=== PATIENT | female | born 1940 | race Caucasian/White ===

== ENCOUNTER → 2019-09-19 13:31 | Outpatient (CLI) | payer MEDICARE, SELFPAY ==
[2019-09-19 13:39] LABS: Basophils % 0.3 % (0.1-2.0); Chloride 105 mmol/L (98-107); Eosinophils # 0.1 K/mm3 (0.0-0.4); Eosinophils % 0.9 % (0.1-12.0); Hematocrit 45.4 % (37.0-47.0); Hemoglobin 15.3 g/dL (12.2-16.2); Lymphocytes # 1.8 K/mm3 (0.7-4.5); Lymphocytes % 24.6 % (10-50); Mean Corpuscular HGB Conc 33.7 g/dL (31.8-35.4); Mean Corpuscular Hemoglobin 30.1 pg (27.0-31.2); Mean Corpuscular Volume 89.3 fl (81-99); Mean Platelet Volume 8.2 fl (7.4-10.4); Monocytes # 0.5 K/mm3 (0.1-1.0); Monocytes % 7.2 % (1.7-9.3); Neutrophils # 4.9 K/mm3 (1.8-7.8); Platelet Count 257 K/mm3 (142-424); Red Blood Count 5.09 M/mm3 (4.20-5.40); Red Cell Distribution Width 15.1 % (11.5-17.5); White Blood Count 7.2 K/mm3 (4.8-10.8)
[2019-09-19 13:40] LABS: Potassium 4.3 mmoL/L (3.5-5.1); Sodium 140 mmol/L (136-145)
[2019-09-19 13:42] LABS: Alanine Aminotransferase 25 U/L (12-78); Albumin Level 4.2 g/dl (3.5-5.0); Albumin/Globulin Ratio 1.6 (1.1-1.8); Alkaline Phosphatase 58 U/L (38-126); Anion Gap 14.3 mEq/L (5-15); Aspartate Amino Transferase 33 U/L (14-36); Bilirubin,Total 0.9 mg/dl (0.2-1.3); Blood Urea Nitrogen 10 mg/dl (7-17); Calcium 9.1 mg/dl (8.4-10.2); Carbon Dioxide 25 mmol/L (22.0-30.0); Cholesterol 158 mg/dl (140-200); Estimated Glomerular Filt Rate 69 ml/min (>60); GFR (African American) 84 ML/MIN (>60); Globulin 2.7 g/dL (1.3-3.2); Glucose 115 mg/dl (74-100); Total Protein,Serum 6.9 g/dl (6.3-8.2); Triglycerides 66 mg/dl (30-150); VLDL Cholesterol 13 mg/dL (0-40)
[2019-09-19 13:43] LABS: Chol/HDL Ratio 2.9 (1-3.5); HDL Cholesterol 54 mg/dl (40-60)
[2019-09-19 13:54] LABS: Direct LDL Cholesterol 102.38 mg/dL (100-129)
[2019-09-19 14:01] LABS: T4 (Thyroxine) 11.3 ug/dl (5.53-11.0)
[2019-09-19 14:14] LABS: Thyroid Stimulating Hormone 2.08 uIU/mL (0.465-4.68)
== END ==
PROVIDERS: Visit Provider Family Medicine
DX: E03.9 Hypothyroidism, unspecified (principal); I25.10 Atherosclerotic heart disease of native coronary artery without angina pectoris
CPT/HCPCS: 80053; 80061; 84436; 84443; 85025

== ENCOUNTER → 2021-05-24 16:00 | Outpatient (CLI) | payer MEDICARE, SELFPAY ==
[2021-05-24 15:16] LABS: Basophils # 0.1 K/mm3 (0-0.2); Basophils % 0.7 % (0.1-2.0); Eosinophils # 0.1 K/mm3 (0.0-0.4); Eosinophils % 0.7 % (0.1-12.0); Hematocrit 46.2 % (37.0-47.0); Hemoglobin 14.7 g/dL (12.2-16.2); Mean Corpuscular HGB Conc 31.7 g/dL (31.8-35.4); Mean Corpuscular Hemoglobin 29.3 pg (27.0-31.2); Mean Corpuscular Volume 92.2 fl (81-99); Mean Platelet Volume 8.5 fl (7.4-10.4); Monocytes # 0.6 K/mm3 (0.1-1.0); Monocytes % 7.7 % (1.7-9.3); Neutrophils % 64.8 % (37.0-80.0); Platelet Count 331 K/mm3 (142-424); Red Blood Count 5.01 M/mm3 (4.20-5.40); White Blood Count 7.7 K/mm3 (4.8-10.8)
[2021-05-24 16:20] LABS: Chloride 103 mmol/L (98-107); Potassium 4.7 mmoL/L (3.5-5.1); Sodium 140 mmol/L (136-145)
[2021-05-24 16:23] LABS: Anion Gap 12.7 mEq/L (5-15); Blood Urea Nitrogen 18 mg/dl (7-17); Calcium 8.8 mg/dl (8.4-10.2); Carbon Dioxide 29 mmol/L (22.0-30.0); Cholesterol 118 mg/dl (140-200); Estimated Glomerular Filt Rate 69 ml/min (>60); GFR (African American) 84 ML/MIN (>60); Glucose 111 mg/dl (74-100); Triglycerides 137 mg/dl (30-150); VLDL Cholesterol 27 mg/dL (0-40)
[2021-05-24 16:24] LABS: Chol/HDL Ratio 3.1 (1-3.5); HDL Cholesterol 38 mg/dl (40-60)
[2021-05-24 16:34] LABS: Direct LDL Cholesterol 66.66 mg/dL (100-129)
== END ==
PROVIDERS: Visit Provider Family Medicine
DX: J44.9 Chronic obstructive pulmonary disease, unspecified (principal); E03.9 Hypothyroidism, unspecified; I25.10 Atherosclerotic heart disease of native coronary artery without angina pectoris
CPT/HCPCS: 80048; 80061; 84443; 85025

== ENCOUNTER 2022-03-06 11:15 | Emergency (ER) | payer MEDICARE, SELFPAY ==
--- NOTE | 2022-03-06 11:18 | XR_ITS ---
FINAL REPORT CLINICAL HISTORY: SOB/CP high blood pressure FINDINGS: A single view of the chest was obtained. The heart is normal in size. The mediastinum is unremarkable. The lungs are clear. There is no pleural effusion. There is no pneumothorax. There is no acute osseous abnormality. IMPRESSION: No acute cardiopulmonary process. Reviewed, Interpreted and Dictated by Vivienne Luther MD Transcribed by Alma Vargas Authenticated and . [facility]
--- NOTE | 2022-03-06 11:19 | PC.NURSE ---
pt ambulatory to restroom without complications
--- NOTE | 2022-03-06 11:20 | PC.NURSE ---
ARIEL PLATT at
--- NOTE | 2022-03-06 11:22 | HMH.EDGENADL ---
Discharge Plan Disposition Patient Disposition: Home, Self-Care Condition: Good Chief Complaint: Recheck/Abnormal Lab/Rx Prescriptions Prescriptions: No Action clobetasol 0.05 % cream 1 applic TP BID Qty: 60 5RF Antivert 50 mg tablet 50 mg PO BID PRN (Reason: dizziness) Qty: 90 0RF nitroglycerin 0.4 mg tablet, sublingual 0.4 mg buccal albuterol sulfate 90 mcg/actuation aerosol powdr breath activated 2 inh INHALATION Q4-6H PRN (Reason: shortness of breath or wheezing) Qty: 1 10RF aspirin 81 mg tablet,delayed release (DR/EC) 81 mg PO DAILY Qty: 100 10RF atorvastatin 20 mg tablet See Rx Instructions .ROUTE .COMPLEX Qty: 90 3RF Dose Instruction: Take 1 tablet by mouth once daily Rx Instructions: Take 1 tablet by mouth once daily diazepam [Valium] 5 mg tablet 5 mg PO HS PRN (Reason: anxiety) Qty: 30 5RF Trelegy Ellipta 200-62.5-25 mcg blister with device 1 inh IH DAILY Qty: 60 10RF furosemide [Lasix] 40 mg tablet 40 mg PO DAILY Qty: 90 3RF hydrochlorothiazide 25 mg tablet 25 mg PO ONCE Qty: 90 3RF levothyroxine [Synthroid] 112 mcg tablet 112 mcg PO DAILY Qty: 90 3RF losartan 100 mg tablet 100 mg PO DAILY Qty: 90 3RF potassium chloride 10 mEq capsule, extended release 10 meq PO DAILY Qty: 90 3RF metoprolol succinate 100 mg tablet extended release 24 hr See Rx Instructions .ROUTE .COMPLEX Qty: 90 3RF Dose Instruction: Take 1 tablet by mouth once daily Rx Instructions: Take 1 tablet by mouth once daily Referrals Follow up/Referrals: Sedrick Pitts MD [Primary Care Provider] - See instructions Clinical Impressions Clinical Impression: Essential hypertension Instructions Patient Instructions: Essential Hypertension Discharge ED Provider: Ranjith Jarvis General Adult HPI General Chief complaint: Recheck/Abnormal Lab/Rx Stated complaint: high blood pressure Time Seen by Provider: 03/06/22 11:17 History of Present Illness HPI narrative: 81-year-old female history of CAD, hypertension, aortic stenosis, referred from PCP office. She presented today with general feeling of illness, URI, congestion, left otalgia and weakness. She was noted to have elevated blood pressure, initial check was 200/110, subsequently was 230/100. She takes hydrochlorothiazide, losartan, metoprolol routinely. She denies chest pain, shortness of breath, headache, visual disturbance, denies having missed any of her blood pressure medications. She states this happened once before where she was sent to the ER for blood pressure and had negative work-up. Given the cough and cold symptoms, she denies taking any decongestants today, states she did take Sudafed 2 days ago, just took a Mucinex today. No other symptoms reported at this time. Related Data Home Medications Medication Instructions Recorded Confirmed nitroglycerin 0.4 mg sublingual 0.4 mg buccal 01/31/22 03/06/22 tablet Previous Rx's Medication Instructions Recorded meclizine 50 mg tablet (Antivert) 50 mg PO BID PRN dizziness #90 tabs 12/13/20 clobetasol 0.05 % topical cream 1 applic topical BID #60 grams 10/07/21 metoprolol succinate 100 mg See Rx Instructions .Route 10/10/21 tablet,extended release 24 hr .COMPLEX #90 tabs albuterol sulfate 90 mcg/actuation 2 inh inhalation Q4-6H PRN 01/31/22 breath activated powder inhaler shortness of breath or wheezing #1 ea aspirin 81 mg tablet,delayed 81 mg PO DAILY #100 tabs 01/31/22 release atorvastatin 20 mg tablet See Rx Instructions .Route 01/31/22 .COMPLEX #90 tabs diazepam 5 mg tablet (Valium) 5 mg PO HS PRN anxiety #30 tabs 01/31/22 fluticasone fur. 200 mcg-umeclid 1 inh inhalation DAILY #60 ea 01/31/22 62.5 mcg-vilant 25 mcg inhalat.powder (Trelegy Ellipta) furosemide 40 mg tablet (Lasix) 40 mg PO DAILY #90 tabs 01/31/22 hydrochlorothiazide 25 mg tablet 25 mg PO ONCE #90 tabs 01/31/22 levothyroxine 112 mcg ta
[2022-03-06 11:27] VITALS: BP 163/125; PULSE 66; O2SAT 97
--- NOTE | 2022-03-06 11:27 | ECG_ITS ---
APPROVED REPORT Exam: Resting ECG HR:67 bpm ECG Measurements Heart Rate 67 AXES WA 187 P 263 QRSd 80 QRS 48 QT 409 T 43 QTc 424 Conclusion ECTOPIC ATRIAL RHYTHM WITH FREQUENT SUPRAVENTRICULAR PREMATURE COMPLEXES POSSIBLE RIGHT VENTRICULAR CONDUCTION DELAY [RSR (QR) IN V1/V2] ST DEVIATION AND MODERATE T-WAVE ABNORMALITY, CONSIDER LATERAL ISCHEMIA [-0.1+ mV T-WAVE IN I/aVL/V5/V6] ABNORMAL ECG UNCONFIRMED REPORT Electronically signed by : Washington Flores MD 03/07/2022 21:17:11
[2022-03-06 11:31] VITALS: BP 195/102; PULSE 62; O2SAT 97
[2022-03-06 11:39] VITALS: BP 163/125; PULSE 63; RESP 15; TEMP 36.8; O2SAT 96; BMI 27.8
[2022-03-06 11:58] LABS: Chloride 104 mmol/L (98-107); Potassium 4.3 mmoL/L (3.5-5.1); Sodium 143 mmol/L (136-145)
[2022-03-06 11:59] LABS: Basophils # 0.1 K/mm3 (0-0.2); Eosinophils # 0.1 K/mm3 (0.0-0.4); Eosinophils % 1.6 % (0.1-12.0); Hematocrit 45.6 % (37.0-47.0); Lymphocytes # 1.8 K/mm3 (0.7-4.5); Lymphocytes % 20.9 % (10-50); Mean Corpuscular HGB Conc 32.9 g/dL (31.8-35.4); Mean Corpuscular Hemoglobin 29.8 pg (27.0-31.2); Mean Corpuscular Volume 90.4 fl (81-99); Mean Platelet Volume 7.5 fl (7.4-10.4); Monocytes # 0.5 K/mm3 (0.1-1.0); Monocytes % 6.3 % (1.7-9.3); Neutrophils # 5.9 K/mm3 (1.8-7.8); Neutrophils % 70.2 % (37.0-80.0); Platelet Count 267 K/mm3 (142-424); Red Blood Count 5.05 M/mm3 (4.20-5.40); Red Cell Distribution Width 14.8 % (11.5-17.5); White Blood Count 8.4 K/mm3 (4.8-10.8)
[2022-03-06 12:00] VITALS: BP 204/94; PULSE 62; O2SAT 93
[2022-03-06 12:01] LABS: Alanine Aminotransferase 17 U/L (12-78); Albumin Level 4.5 g/dl (3.5-5.0); Albumin/Globulin Ratio 1.4 (1.1-1.8); Alkaline Phosphatase 62 U/L (38-126); Anion Gap 13.3 mEq/L (5-15); Aspartate Amino Transferase 24 U/L (14-36); Bilirubin,Total 0.8 mg/dl (0.2-1.3); Blood Urea Nitrogen 15 mg/dl (7-17); Carbon Dioxide 30 mmol/L (22.0-30.0); Creatinine Clearance Estimated 53 mL/min (50-200); Estimated Glomerular Filt Rate 60 ml/min (>60); GFR (African American) 73 ML/MIN (>60); Globulin 3.2 g/dL (1.3-3.2); Total Protein,Serum 7.7 g/dl (6.3-8.2)
[2022-03-06 12:02] LABS: Calcium 9.3 mg/dl (8.4-10.2); Glucose 125 mg/dl (74-100)
[2022-03-06 12:10] LABS: NT Pro Brain Natriuretic Pep. 1130 pg/mL (0-450)
[2022-03-06 12:16] LABS: Troponin I < 0.01 ng/ml (0.00-0.034)
--- NOTE | 2022-03-06 12:17 | PC.NURSE ---
pt sitting up on ED strethcer with family at BS. No needs at this time.
[2022-03-06 12:31] VITALS: BP 191/89; PULSE 60; O2SAT 95
--- NOTE | 2022-03-06 12:43 | PC.NURSE ---
ER at speaking to pt regarding update on POC
[2022-03-06 13:04] VITALS: BP 189/90; PULSE 93; RESP 20; TEMP 36.8; O2SAT 97
== END 2022-03-06 13:05 | disposition home or self-care (01) ==
PROVIDERS: Emergency Provider Emergency Medicine; PCP Family Medicine
DX: I10 Essential (primary) hypertension (principal); I25.10 Atherosclerotic heart disease of native coronary artery without angina pectoris; I35.0 Nonrheumatic aortic (valve) stenosis; Z87.891 Personal history of nicotine dependence
CPT/HCPCS: 71045; 80053; 83880; 84484; 85025; 93005; 99285

== ENCOUNTER → 2022-09-04 10:37 | Outpatient (CLI) | payer MEDICARE, SELFPAY ==
[2022-09-04 19:57] LABS: Thyroid Stimulating Hormone 0.51 uIU/mL (0.465-4.68)
== END ==
PROVIDERS: PCP Family Medicine; Visit Provider Family Medicine
DX: I10 Essential (primary) hypertension (principal)
CPT/HCPCS: 84443

== ENCOUNTER 2023-10-07 09:47 | Outpatient (CLI) | payer MEDICARE, SELFPAY ==
[2023-10-07 19:08] LABS: Basophils % 0.3 % (0.1-2.0); Eosinophils # 0.1 K/mm3 (0.0-0.4); Eosinophils % 0.8 % (0.1-12.0); Hemoglobin 14.6 g/dL (12.2-16.2); Lymphocytes # 1.6 K/mm3 (0.7-4.5); Lymphocytes % 20.8 % (10-50); Mean Corpuscular HGB Conc 32.5 g/dL (31.8-35.4); Mean Corpuscular Hemoglobin 29.8 pg (27.0-31.2); Mean Corpuscular Volume 91.5 fl (81-99); Mean Platelet Volume 8.5 fl (7.4-10.4); Monocytes # 0.6 K/mm3 (0.1-1.0); Monocytes % 8.2 % (1.7-9.3); Neutrophils # 5.3 K/mm3 (1.8-7.8); Neutrophils % 69.8 % (37.0-80.0); Platelet Count 240 K/mm3 (142-424); Red Blood Count 4.92 M/mm3 (4.20-5.40); Red Cell Distribution Width 16.1 % (11.5-17.5); White Blood Count 7.6 K/mm3 (4.8-10.8)
[2023-10-07 21:29] LABS: Hemoglobin A1C 6.7 % (4.0-6.0)
[2023-10-07 21:52] LABS: Albumin Level 4.4 g/dl (3.5-5.0); Chloride 103 mmol/L (98-107)
[2023-10-07 21:53] LABS: Potassium 3.7 mmoL/L (3.5-5.1); Sodium 139 mmol/L (136-145)
[2023-10-07 21:55] LABS: Alanine Aminotransferase 20 U/L (12-78); Anion Gap 12.7 mEq/L (5-15); Aspartate Amino Transferase 26 U/L (14-36); Blood Urea Nitrogen 21 mg/dl (7-17); Carbon Dioxide 27 mmol/L (22.0-30.0); Estimated Glomerular Filt Rate 53 ml/min (>60); GFR (African American) 64 ML/MIN (>60)
[2023-10-07 21:56] LABS: Albumin/Globulin Ratio 1.6 (1.1-1.8); Alkaline Phosphatase 53 U/L (38-126); Bilirubin,Total 0.6 mg/dl (0.2-1.3); Calcium 9.3 mg/dl (8.4-10.2); Chol/HDL Ratio 2.7 (1-3.5); Cholesterol 145 mg/dl (140-200); Globulin 2.8 g/dL (1.3-3.2); Glucose 108 mg/dl (74-100); HDL Cholesterol 54 mg/dl (40-60); Total Protein,Serum 7.2 g/dl (6.3-8.2); Triglycerides 140 mg/dl (30-150); VLDL Cholesterol 28 mg/dL (0-40)
[2023-10-07 22:07] LABS: Direct LDL Cholesterol 64.31 mg/dL (100-129)
== END 2023-10-07 23:59 | disposition home or self-care (01) ==
LOC: LAB.DROPOF 10-08 09:47
PROVIDERS: PCP Family Medicine; Visit Provider Family Medicine
DX: I10 Essential (primary) hypertension (principal); J44.1 Chronic obstructive pulmonary disease with (acute) exacerbation; R53.83 Other fatigue; Z87.891 Personal history of nicotine dependence
CPT/HCPCS: 80050; 80053; 80061; 83036; 84443; 85025

== ENCOUNTER 2024-05-16 15:30 | Outpatient (CLI) | payer MEDICARE, SELFPAY ==
[2024-05-16 20:52] LABS: Thyroid Stimulating Hormone 4.16 uIU/mL (0.465-4.68)
== END 2024-05-16 23:59 | disposition home or self-care (01) ==
LOC: LAB.DROPOF 05-18 07:47
PROVIDERS: PCP Family Medicine; Visit Provider Family Medicine
DX: E03.9 Hypothyroidism, unspecified (principal); G62.9 Polyneuropathy, unspecified
CPT/HCPCS: 84443